=== PATIENT | female | born 1945 ===

== ENCOUNTER 2018-10-23 13:44 | Emergency (ER) | payer MEDICARE ==
--- NOTE | 2018-10-23 15:20 | ED PDOC ---
HPI: Female Pain <Dallas Martinez Y - Last Filed: 10/23/18 18:38> Additional Complaint(s): 73 y/o F with a PMHx of pre-diabetes and HTN presents complaining of LLQ and suprapubic pain that exacerbated this morning. Pain began several months ago, pressure/sharp, LLQ that radiates to suprapubic area, worse with straining. No ill contacts. No recent travel. Pt denies fever, chills, headache, chest pain, SOB, abdominal pain, N/V/D or peripheral edema. --Pt had an US Abdomen and colonoscopy 6 months ago with NO abnormalities rep orted as per pt. PMD: Keyana Nicholas PMHx: Pre-diabetes, HTN, morbid obesity. PSHx: total hysterectomy 13 years ago FHx: Extensive DM2 in both sides of family. SHx: Denies rec drugs. No tobacco. Alcohol every weekend, 2-3 beers or cocktails. <Dameon Rivas - Last Filed: 10/23/18 19:24> Time Seen by Provider: 10/23/18 14:39 Chief Complaint (Nursing): Female Genitourinary Past Medical History Vital Signs: Last Vital Signs Temp 97.8 F 10/23/18 14:12 Pulse 72 10/23/18 14:12 Resp 18 10/23/18 14:12 BP 167/88 H 10/23/18 14:12 Pulse Ox 99 10/23/18 17:58 <Dallas Martinez Y - Last Filed: 10/23/18 18:38> Vital Signs: Last Vital Signs Temp 97.8 F 10/23/18 14:12 Pulse 72 10/23/18 14:12 Resp 18 10/23/18 14:12 BP 167/88 H 10/23/18 14:12 Pulse Ox 99 10/23/18 14:12 Primary Care Provider: FAMILY PROVIDER,NO - Medical History PMH: Anxiety Denies: Diabetes, Hepatitis, HIV, HTN, Seizures, Sexually Transmitted Disease - Surgical History Other surgeries: Total oophore-hysterectomy 13 years ago - Family History Family History: States: No Known Family Hx - Living Arrangements Living Arrangements: With Family - Social History Current smoker - smoking cessation education provided: No Alcohol: None Drugs: Denies <Dameon Rivas - Last Filed: 10/23/18 19:24> - Home Medications Home Medications: Ambulatory Orders Medication Instructions Recorded DiphenhydrAMINE [Benadryl] 25 mg PO Q6 PRN #0 cap 08/31/15 - Allergies Allergies/Adverse Reactions: Allergies Allergy/AdvReac Type Severity Reaction Status Date / Time No Known Allergies Allergy Verified 10/23/18 14:16 Review of Systems Constitutional: Negative for: Fever, Chills, Sweats Eyes: Negative for: Pain Cardiovascular: Negative for: Chest Pain, Palpitations, Orthopnea Respiratory: Negative for: Cough, Shortness of Breath, Hemoptysis Gastrointestinal: Positive for: Abdominal Pain. Negative for: Nausea, Vomiting Genitourinary Female: Negative for: Dysuria, Frequency, Hematuria, Vaginal Discharge, Vaginal Bleeding Skin: Negative for: Rash, Lesions Neurological: Negative for: Weakness, Numbness <EvelynDameon - Last Filed: 10/23/18 19:24> Physical Exam - Physical Exam Appears: Positive for: No Acute Distress Head Exam: Positive for: ATRAUMATIC, NORMAL INSPECTION Skin: Positive for: Normal Color, Warm, Dry Eye Exam: Positive for: EOMI, PERRL Neck: Positive for: Normal, Painless ROM, Supple Cardiovascular/Chest: Positive for: Regular Rate, Rhythm Respiratory: Positive for: Normal Breath Sounds Gastrointestinal/Abdominal: Positive for: Bowel Sounds, Soft, Tenderness (LLQ), Other (obese, significant amount of adipose tissue. ) Extremity: Positive for: Other (presenc eof several superficial varicose veins. ). Negative for: Normal ROM, Calf Tenderness Neurological/Psych: Positive for: Awake, Alert <EvelynDameon - Last Filed: 10/23/18 19:24> - Laboratory Results Result Diagrams: 10/23/18 15:39 10/23/18 15:39 Lab Results: Total Bilirubin 0.4 mg/dl (0.2-1.3) 10/23/18 15:39 AST 31 U/L (14-36) 10/23/18 15:39 ALT 28 U/L (9-52) 10/23/18 15:39 Alkaline Phosphatase 112 U/L (38-126) 10/23/18 15:39 Total Protein 8.2 G/DL (6.3-8.2) 10/23/18 15:39 Albumin 4.6 g/dL (3.5-5.0) 10/23/18 15:39 Globulin 3.6 gm/dL (2.2-3.9) 10/23/18 15:39 Albumin/Globulin Ratio 1.3 (1.0-2.1) 10/23/18 15:39 Lipase 84 U/L (23-300) 10/23/18 15:39 Urine Color Yellow (YELLOW) 10/23/18 16:46 Urine Clarity Slighty-cloudy (Clear) 10/23/18 16:46 Urine pH 6.0 (5.0-8.0) 10/23/18 16:46 Ur Specific [place] 1.020 (1.003-1.030) 10/23/18 16:46 Urine Protein Negative mg/dL (NEGATIVE) 10/23/18 16:46 Urine Glucose (UA) Neg mg/dL (NEGATIVE) 10/23/18 16:46 Urine Ketones Negative mg/dL (NEGATIVE) 10/23/18 16:46 Urine Blood Negative (NEGATIVE) 10/23/18 16:46 Urine Nitrate Negative (NEGATIVE) 10/23/18 16:46 Urine Bilirubin Negative (NEGATIVE) 10/23/18 16:46 Urine Urobilinogen 0.2-1.0 mg/dL (0.2-1.0) 10/23/18 16:46 Ur Leukocyte Esterase Neg Isaac/uL (Negative) 10/23/18 16:46 Urine RBC (Auto) 1 /hpf (0-3) 10/23/18 16:46 Urine Microscopic WBC 1 /hpf (0-5) 10/23/18 16:46 Ur Squamous Epith Cells 1 /hpf (0-5) 10/23/18 16:46 <Dallas Martinez Y - Last Filed: 10/23/18 18:38> - Laboratory Results Result Diagrams: 10/23/18 15:39 10/23/18 15:39 - ECG O2 Sat by Pulse Oximetry: 99 <Dameon Rivas - Last Filed: 10/23/18 19:24> Medical Decision Making Medical Decision Makin:30 Patient seen by provider and resident. She still reports abdominal and divaginal pain. Normal CT, pelvic exam conducted Scribe Attestation: Documented by Ankit Lee, acting as a scribe for Dallas Martinez MD. Provider Scribe Attestation: All medical record entries made by the Scribe were at my direction and personally dictated by me. I have reviewed the chart and agree that the record accurately reflects my personal performance of the history, physical exam, medical decision making, and the department course for this patient. I have also personally directed, reviewed, and agree with the discharge instructions and disposition. <Dallas Martinez Y - Last Filed: 10/23/18 18:38> Medical Decision Makin:24 --CBC, CMP, U/A, lipase ordered --CT Abdomen/Pelvis w/ PO and IV contrast ordered. 17:55 --CT results reviewed, no acute pathology. --CBC, CMP and U/A were unremarkable. 18:00 --Pt reports improvement of pain, still present and is 3/10, feels like a fullness will protrude from vagina or rectum. --Pelvic exam performed, agriculture instructor by bedside Mrs De Jesus: ---->Labia majora and minora, perineum intact with NO lesions. Pale vaginal ortega with no lesions on inspection, no cervix appreciated, no bleeding. Bimanual examination unremarkable. 18:59 --Pt was informed of CT findings. --Pt was educated and reassured on her low probability for cervical/ovarian cancer since total hysterectomy was performed. Pt afraid of colon cancer, pt was reassured that her recent colonoscopy did not show any suspicion or malignant lesion. --Pt stable, will be discharged home, instructed to f/u with PCP, Dr Obando and Gynecology specialist for further management. <Dameon Rivas - Last Filed: 10/23/18 19:24> Disposition <Dallas Martinez Y - Last Filed: 10/23/18 18:38> - Patient ED Disposition Is Patient to be Admitted: No - Disposition Disposition: Routine/Home Disposition Time: 19:00 <Dameon Rivas - Last Filed: 10/23/18 19:24> - Clinical Impression Clinical Impression: Genitourinary Pain, Abdominal pain - Disposition Referrals: Keyana Curtis MD [Family Provider] - Condition: IMPROVED Additional Instructions: follow up with your doctor Dr Curtis in 1-2 days return to the ED with any worsening or concerning symptoms Instructions: Acute Pelvic Pain, Stomach Ache and Stomach Upset Forms: 2 Minutes (Latvian)
[2018-10-23 16:01] LABS: BASO % 0.6 % (0.0-2.0); EOS # 0.3 K/uL (0.0-0.7); EOS % 3.4 % (0.0-4.0); HEMOGLOBIN 12.1 g/dL (12.0-16.0); LYMPH # 0.7 K/uL (1.0-4.3); LYMPH % 8.7 % (20.0-40.0); MEAN CELL VOLUME 86.1 fl (81.0-99.0); MEAN CORPUSCULAR HEMOGLOBIN 28.9 pg (27.0-31.0); MEAN CORPUSCULAR HGB CONC 33.6 g/dL (33.0-37.0); MEAN PLATELET VOLUME 10.7 fl (7.2-11.7); MONO # 1.1 K/uL (0.0-0.8); MONO % 14.6 % (0.0-10.0); NEUT # 5.5 K/uL (1.8-7.0); NEUT % 72.7 % (50.0-75.0); NRBC % 0.1 % (0.0-0.0); PLATELET COUNT 208 K/uL (130-400); RBC 4.17 Mil/uL (3.80-5.20); RED CELL DISTRIBUTION WIDTH 13.9 % (11.5-14.5); WHITE BLOOD COUNT 7.6 K/uL (4.8-10.8)
[2018-10-23 16:15] LABS: ALB/GLOB RATIO 1.3 (1.0-2.1); ALBUMIN 4.6 g/dL (3.5-5.0); ALT/SGPT 28 U/L (9-52); AST/SGOT 31 U/L (14-36); BLOOD UREA NITROGEN 20 mg/dl (7-17); GFR NON-AFRICAN AMERICAN > 60; LIPASE 84 U/L (23-300)
--- NOTE | 2018-10-23 16:41 | CT ---
Date of service: 10/23/2018 PROCEDURE: CT Abdomen and Pelvis without intravenous contrast HISTORY: Vaginal discomfort, lower abdominal pain. COMPARISON: 12/12/2010 CT abdomen and pelvis. TECHNIQUE: Unenhanced. Neither IV nor oral contrast administered Radiation dose: Total exam DLP = 858.88 mGy-cm. This CT exam was performed using one or more of the following dose reduction techniques: Automated exposure control, adjustment of the mA and/or kV according to patient size, and/or use of iterative reconstruction technique. FINDINGS: LOWER THORAX: Multiple well-circumscribed solid pulmonary nodules none larger than 3 mm. LIVER: Unremarkable. No gross lesion or ductal dilatation. Incidental finding(s): Peripheral, sub cm cyst lateral segment left hepatic lobe. GALLBLADDER AND BILE DUCTS: Unremarkable. PANCREAS: Unremarkable. No gross lesion or ductal dilatation. SPLEEN: Unremarkable. ADRENALS: Unremarkable. No mass. KIDNEYS AND URETERS: Unremarkable. No hydronephrosis. No solid mass. VASCULATURE: Atherosclerotic calcification and mural plaque present. Findings are seen throughout the aorta which is non aneurysmal. BOWEL: Unremarkable. No obstruction. No gross mural thickening. APPENDIX: Unremarkable. Normal appendix. PERITONEUM: Unremarkable. No free fluid. No free air. LYMPH NODES: Unremarkable. No enlarged lymph nodes. BLADDER: Decompressed urinary bladder. No focal findings. REPRODUCTIVE: Prior hysterectomy. BONES: No acute fracture. Scoliosis, secondary degenerative change at multiple levels. OTHER FINDINGS: Periumbilical fat containing midline hernia. IMPRESSION: No significant or acute findings to account for/ related to the clinical presentation. Additional benign and/or incidental findings described above. There are multiple, solid, pulmonary nodules that are less than 6 mm in size. According to the 2017 Fleischner criteria, if the patient is low risk, no routine follow-up is recommended. If the patient is high risk, an optional CT at 12 months is recommended.
[2018-10-23 16:58] LABS: SQUAMOUS EPITHIAL 1 /hpf (0-5); URINE BILIRUBIN NEGATIVE (NEGATIVE); URINE BLOOD NEGATIVE (NEGATIVE); URINE CLARITY SLIGHTY-CLOUDY (Clear); URINE COLOR YELLOW (YELLOW); URINE GLUCOSE (UA) NEG (NEGATIVE); URINE LEUKOCYTE ESTERASE NEG Leu/uL (Negative); URINE PROTEIN NEGATIVE (NEGATIVE); URINE UROBILINOGEN 0.2-1.0 mg/dL (0.2-1.0)
[2018-10-23 17:05] LABS: EOSINOPHIL 3 % (0-7); LYMPHOCYTE 9 % (20-50); MONOCYTE 8 % (0-10); NEUTROPHIL 80 % (42-75); PLATELET ESTIMATE NORMAL (NORMAL); TOTAL CELLS COUNTED 100
[2018-10-23 19:16] VITALS: BP 144/85; PULSE 71; RESP 16; TEMP 98.3
[2018-10-23 19:22] VITALS: O2SAT 99
== END 2018-10-23 19:15 | disposition home or self-care (01) ==
LOC: H.ER 13:44
DX: R10.30 Lower abdominal pain, unspecified (principal); R73.03 Prediabetes; I10 Essential (primary) hypertension; Z90.710 Acquired absence of both cervix and uterus; E66.01 Morbid (severe) obesity due to excess calories; F41.9 Anxiety disorder, unspecified
CPT/HCPCS: 74176; 80053; 81003; 83690; 85025; 96374; 99285; J2270